=== PATIENT | female | born 1970 | race African-American/Black ===

== ENCOUNTER 2023-03-05 00:06 | Emergency (ER) | payer SELFPAY ==
[2023-03-05] MEDS ORDERED: Meclizine HCl 25 MG TAB ONE (00:25)
[2023-03-05] MEDS ORDERED: predniSONE 20 MG TAB ONE (00:33)
== END 2023-03-05 01:07 | disposition home or self-care (01) ==
LOC: ERS 00:06
DX: R42 Dizziness and giddiness (principal); H66.91 Otitis media, unspecified, right ear
CPT/HCPCS: 99283; J7512